=== PATIENT | female | born 1935 | race Caucasian/White ===

== ENCOUNTER → 2016-11-16 | Outpatient (CLI) | payer BC ==
[~2016-11-16] MED LIST: AMX500 PO; CHOL100010 PO; CRBSR/200 PO
[2016-11-16 13:58] LABS: BASO % 0.5 %; BASO ABS # 0.02 K/uL (0-0.2); COMPLETE YES; EOS % 1.2 %; HEMATOCRIT 37.7 % (37-47); LYMPH % 37.2 %; MEAN CELL VOLUME 89.8 fL (80-100); MEAN CORPUSCULAR HEMOGLOBIN 32.1 pg (25-34); MEAN CORPUSCULAR HGB CONC 35.8 g/dl (32-36); MEAN PLATELET VOLUME 10.2 fL (7.4-10.4); MONO % 13.3 %; NEUT % 47.8 %; PLATELET COUNT 271 K/uL (130-400)
[2016-11-16 14:20] LABS: ALT/SGPT 29 U/L (12-78); BLOOD UREA NITROGEN 11 mg/dl (7-18); BUN/CREATININE RATIO 14.5 (10-20); CALCIUM 8.7 mg/dl (8.5-10.1); CARBON DIOXIDE 27 mmol/L (21-32); CHLORIDE 94 mmol/L (98-107); CREATININE 0.76 mg/dl (0.60-1.20); GLUCOSE 91 mg/dl (70-99); POTASSIUM 4.1 mmol/L (3.5-5.1); SODIUM 129 mmol/L (136-145)
[2016-11-16 14:23] LABS: ALB/GLOB RATIO 1.5 (0.9-2); ALKALINE PHOSPHATASE 80 U/L (45-117); AST/SGOT 21 U/L (15-37)
== END | disposition home or self-care (01) ==
LOC: C.LABBC 11:27
PROVIDERS: ATTEND Psychiatry & Neurology Neurology
DX: E55.9 Vitamin D deficiency, unspecified (principal); E87.1 Hypo-osmolality and hyponatremia; Z85.038 Personal history of other malignant neoplasm of large intestine; G50.0 Trigeminal neuralgia

== ENCOUNTER → 2016-12-17 | Outpatient (CLI) | payer BC ==
--- NOTE | 2016-12-17 15:40 | MAMMOGRAPHY REPORT ---
BILATERAL DIGITAL SCREENING MAMMOGRAM WITH CAD: 12/17/2016 CLINICAL HISTORY: Routine screening. Patient has no complaints. TECHNIQUE: Current study was also evaluated with a Computer Aided Detection (CAD) system. Bilatera l CC and MLO views were obtained. COMPARISON: Comparison is made to exams dated: 12/02/2014 mammogram, 12/15/2015 mammogram, 11/26/2013 m ammogram, 11/20/2012 mammogram, 11/16/2011 mammogram, and 11/13/2010 mammogram - [facility]. BREAST COMPOSITION: There are scattered areas of fibroglandular density in both breasts. FINDINGS: No suspicious masses, calcifications, or areas of architectural distortion are noted in e ither breast. There has been no significant interval change compared to prior exams. IMPRESSION: ACR BI-RADS CATEGORY 1: NEGATIVE There is no mammographic evidence of malignancy. A 1 year screening mammogram is recommended. The p atient will receive written notification of the results. Approximately 10% of breast cancers are not detected with mammography. A negative mammographic repor t should not delay biopsy if a clinically suggestive mass is present. Perla Price M.D. ah/:12/17/2016 08:29:15 Tourist Home Keeper: Benedicto COLEMAN(R)(M), [facility] letter sent: Normal 1/2 BI-RADS Code: ACR BI-RADS Category 1: Negative
== END | disposition home or self-care (01) ==
LOC: C.MAMM 07:55
PROVIDERS: ATTEND Internal Medicine
DX: Z12.31 Encounter for screening mammogram for malignant neoplasm of breast (principal)

== ENCOUNTER → 2017-05-04 | Outpatient (CLI) | payer BC ==
[2017-05-04 17:30] LABS: BASO % 0.3 %; BASO ABS # 0.02 K/uL (0-0.2); COMPLETE YES; EOS % 0.5 %; HEMATOCRIT 37.2 % (37-47); IG% 0.3 %; LYMPH % 18.8 %; LYMPH ABS # 1.48 K/uL (1.2-3.4); MEAN CELL VOLUME 91.6 fL (80-100); MEAN PLATELET VOLUME 10.1 fL (7.4-10.4); MONO % 16.1 %; PLATELET COUNT 243 K/uL (130-400); RED BLOOD COUNT 4.06 M/uL (4.2-5.4); WHITE BLOOD COUNT 7.88 K/uL (4.8-10.8)
[2017-05-04 17:51] LABS: ALT/SGPT 33 U/L (12-78); AST/SGOT 29 U/L (15-37); BLOOD UREA NITROGEN 12 mg/dl (7-18); BUN/CREATININE RATIO 15.2 (10-20); CALCIUM 9.2 mg/dl (8.5-10.1); CARBON DIOXIDE 30 mmol/L (21-32); CHLORIDE 97 mmol/L (98-107); CREATININE 0.82 mg/dl (0.60-1.20); GLUCOSE 81 mg/dl (70-99); POTASSIUM 4.2 mmol/L (3.5-5.1); SODIUM 131 mmol/L (136-145)
[2017-05-04 17:53] LABS: ALB/GLOB RATIO 1.2 (0.9-2); ALKALINE PHOSPHATASE 94 U/L (45-117)
== END | disposition home or self-care (01) ==
LOC: C.LAB1850 16:57
PROVIDERS: ATTEND Internal Medicine
DX: N39.0 Urinary tract infection, site not specified (principal); M54.9 Dorsalgia, unspecified

== ENCOUNTER → 2017-05-05 | Outpatient (CLI) | payer BC ==
--- NOTE | 2017-05-05 10:05 | DIAGNOSTIC IMAGING REPORT ---
KUB CLINICAL HISTORY: Right-sided back pain. FINDINGS: 2 AP supine abdominal radiographs are compared to study dated 07/03/2007 and correlated with abdominal CT dated 01/26/2010. There is a nonobstructed abdominal bowel gas pattern noting moderate colonic fecal retention. Suture material is present in the left abdomen. There is no radiographic evidence of nephrolithiasis. The skeletal structures are osteopenic. The lumbosacral spine and bony pelvis appear intact. IMPRESSION: 1. Moderate constipation. No bowel obstruction is seen. 2. There is no radiographic evidence of nephrolithiasis. Electronically signed by: Yves Lama M.D. 05/05/2017 10:04 AM Dictated Date/Time: 05/05/2017 10:03 AM
== END | disposition home or self-care (01) ==
LOC: C.RAD1850 09:48
PROVIDERS: ATTEND Internal Medicine
DX: M54.9 Dorsalgia, unspecified (principal); K59.00 Constipation, unspecified

== ENCOUNTER → 2017-05-17 | Outpatient (CLI) | payer BC ==
[2017-05-17 13:47] LABS: URINE APPEARANCE CLEAR (CLEAR); URINE BILIRUBIN NEG (NEG); URINE COLOR YELLOW; URINE NITRITE NEG (NEG); URINE PH 7.5 (4.5-7.5); URINE SPECIFIC GRAVITY 1.015 (1.000-1.030); UROBILINOGEN NEG (NEG); ZZUR CULT IF INDIC CLEAN CATCH NO
[2017-05-17 13:49] LABS: MANUAL MICROSCOPIC REQUIRED? NO; REVIEW REQ? NO
== END | disposition home or self-care (01) ==
LOC: C.LAB1850 12:04
PROVIDERS: ATTEND Internal Medicine
DX: N39.0 Urinary tract infection, site not specified (principal)

== ENCOUNTER → 2017-11-14 | Outpatient (CLI) | payer BC ==
[2017-11-14 12:20] LABS: BASO % 0.5 %; BASO ABS # 0.02 K/uL (0-0.2); EOS % 4.3 %; EOS ABS # 0.17 K/uL (0-0.5); HEMATOCRIT 37.7 % (37-47); HEMOGLOBIN 13.4 g/dL (12.0-16.0); LYMPH % 41.4 %; LYMPH ABS # 1.64 K/uL (1.2-3.4); MEAN CELL VOLUME 90.2 fL (80-100); MEAN CORPUSCULAR HEMOGLOBIN 32.1 pg (25-34); MEAN CORPUSCULAR HGB CONC 35.5 g/dl (32-36); MEAN PLATELET VOLUME 9.9 fL (7.4-10.4); MONO % 12.4 %; MONO ABS # 0.49 K/uL (0.11-0.59); NEUT % 41.4 %; NEUT ABS # 1.64 K/uL (1.4-6.5); PLATELET COUNT 299 K/uL (130-400); RED CELL DISTRIBUTION WIDTH CV 13.7 % (11.5-14.5); RED CELL DISTRIBUTION WIDTH SD 45.3 fL (36.4-46.3); WHITE BLOOD COUNT 3.96 K/uL (4.8-10.8)
[2017-11-14 14:28] LABS: ALBUMIN 3.8 gm/dl (3.4-5.0); ALT/SGPT 33 U/L (12-78); BLOOD UREA NITROGEN 13 mg/dl (7-18); CALCIUM 8.8 mg/dl (8.5-10.1); CARBON DIOXIDE 28 mmol/L (21-32); CHOLESTEROL 227 mg/dl (0-200); CREATININE 0.74 mg/dl (0.60-1.20); GLUCOSE 89 mg/dl (70-99); POTASSIUM 4.6 mmol/L (3.5-5.1); SODIUM 128 mmol/L (136-145)
[2017-11-14 14:31] LABS: ALKALINE PHOSPHATASE 79 U/L (45-117); AST/SGOT 26 U/L (15-37); LDL CHOLESTEROL CALCULATED 113 mg/dl; TOTAL PROTEIN 6.8 gm/dl (6.4-8.2)
== END | disposition home or self-care (01) ==
LOC: C.LAB1850 09:40
PROVIDERS: ATTEND Internal Medicine
DX: Z11.59 Encounter for screening for other viral diseases (principal); Z85.038 Personal history of other malignant neoplasm of large intestine; D70.2 Other drug-induced agranulocytosis; Z13.220 Encounter for screening for lipoid disorders

== ENCOUNTER → 2017-11-16 | Outpatient (CLI) | payer BC ==
[2017-11-16 13:01] LABS: ALBUMIN 3.8 gm/dl (3.4-5.0); BLOOD UREA NITROGEN 12 mg/dl (7-18); CALCIUM 8.7 mg/dl (8.5-10.1); CARBON DIOXIDE 29 mmol/L (21-32); CREATININE 0.83 mg/dl (0.60-1.20); GLUCOSE 87 mg/dl (70-99); POTASSIUM 4.3 mmol/L (3.5-5.1); SODIUM 128 mmol/L (136-145)
[2017-11-16 13:14] LABS: PHOSPHORUS 3.2 mg/dl (2.5-4.9)
== END | disposition home or self-care (01) ==
LOC: C.LAB1850 11:52
PROVIDERS: ATTEND Internal Medicine Nephrology
DX: E87.1 Hypo-osmolality and hyponatremia (principal)

== ENCOUNTER → 2017-12-20 | Outpatient (CLI) | payer BC ==
--- NOTE | 2017-12-21 15:05 | MAMMOGRAPHY REPORT ---
BILATERAL DIGITAL SCREENING MAMMOGRAM TOMOSYNTHESIS WITH CAD: 12/20/2017 CLINICAL HISTORY: Routine screening. Patient has no complaints. TECHNIQUE: Breast tomosynthesis in addition to standard 2D mammography was performed. Current study was also evaluated with a Computer Aided Detection (CAD) system. COMPARISON: Comparison is made to exams dated: 12/17/2016 mammogram, 12/15/2015 mammogram, 12/02/2014 carmela mogram, 11/26/2013 mammogram, 11/20/2012 mammogram, and 11/16/2011 mammogram - [facility] BREAST COMPOSITION: There are scattered areas of fibroglandular density in both breasts. FINDINGS: There is stable asymmetry in the lateral left breast. No new suspicious mass, architectura l distortion or cluster of microcalcifications is seen. IMPRESSION: ACR BI-RADS CATEGORY 1: NEGATIVE There is no mammographic evidence of malignancy. A 1 year screening mammogram is recommended. The pa tient will receive written notification of the results. Approximately 10% of breast cancers are not detected with mammography. A negative mammographic report should not delay biopsy if a clinically suggestive mass is present. Zina Hannah M.D. ay/:12/20/2017 17:58:24 Fuel Pilot Engineer: Jaxon Sellers M, [facility] letter sent: Normal 1/2 BI-RADS Code: ACR BI-RADS Category 1: Negative
== END | disposition home or self-care (01) ==
LOC: C.MAMM 08:51
PROVIDERS: ATTEND Internal Medicine
DX: Z12.31 Encounter for screening mammogram for malignant neoplasm of breast (principal)

== ENCOUNTER → 2017-12-28 | Outpatient (CLI) | payer BC ==
[2017-12-28 17:11] LABS: ALBUMIN 3.9 gm/dl (3.4-5.0); BLOOD UREA NITROGEN 11 mg/dl (7-18); CALCIUM 8.8 mg/dl (8.5-10.1); CARBON DIOXIDE 28 mmol/L (21-32); CREATININE 0.76 mg/dl (0.60-1.20); GLUCOSE 87 mg/dl (70-99); PHOSPHORUS 3.3 mg/dl (2.5-4.9); POTASSIUM 4.2 mmol/L (3.5-5.1); SODIUM 131 mmol/L (136-145)
== END | disposition home or self-care (01) ==
LOC: C.LABBC 14:31
PROVIDERS: ATTEND Internal Medicine Nephrology
DX: E87.1 Hypo-osmolality and hyponatremia (principal)

== ENCOUNTER 2023-03-19 13:50 | Inpatient (IN) ==
[2023-03-19] MEDS ORDERED: MoRPHine SULFATE 4 MG/ML 1 ML CARP\\VIAL IV PRN (14:05)
[2023-03-19] MEDS ORDERED: ONDANSETRON INJ 2 MG/ML 2 ML VIAL IV STA (14:05)
[2023-03-19] MEDS ORDERED: SODIUM CHLORIDE 0.9% 1000ML 1,000 ML IV STA (14:05)
--- NOTE | 2023-03-19 14:10 | Emergency Department Note ---
Impression & Plan SBO (small bowel obstruction), Abdominal pain, Acute hyponatremia ED Provider Note NAME: JITENDRA FRITZ AGE: 87 SEX: F : 1935 ARRIVES VIA: Walk-In INFORMANT: Patient, ED PROVIDER(S): Henry Reis DO CHIEF COMPLAINT: Abdominal pain HPI: The patient is an 87-year-old female who presented to the emergency department for an evaluation of abdominal pain. The patient started having abdominal pain yesterday. Pain has been worsening throughout the evening and into today. She was seen at an urgent care and was referred to the emergency department for further evaluation as well as possible CAT scan. She is a history of colon cancer in the past with extensive surgical treatment. She denies having any rectal bleeding. She has had some constipation recently. She is often seen by her family doctor for the symptoms. She denies having any chest pain or fever. ROS: See above HPI for pertinent positives & negatives. A total of 10 systems reviewed and were otherwise negative. PAST MEDICAL HISTORY: See Below PAST SURGICAL HISTORY: See Below FAMILY HISTORY: See Below SOCIAL HISTORY: See Below HOME MEDICATIONS: See Below ALLERGIES: See Below VITALS: See Below PHYSICAL EXAMINATION: GENERAL: Patient is awake alert in no acute distress patient is resting comfortably and showing no signs of anxiety EYES: The conjunctivae are clear. The pupils are round and reactive. EARS, NOSE, MOUTH AND THROAT: The nose is without any evidence of any deformity. NECK: The neck is nontender and supple. RESPIRATORY: Normal respiratory effort is noted there is no evidence of wheezing rhonchi or rales CARDIOVASCULAR: Regular rate and rhythm noted there no murmurs rubs or gallops normal S1 normal S2. GASTROINTESTINAL: The abdomen is soft and mildly distended. There is diffuse tenderness to palpation especially in the lower quadrants. There is mild guarding in the left lower quadrant. MUSCULOSKELETAL/EXTREMITIES: There is no evidence of gross deformity full range of motion is noted in the hips and shoulders. SKIN: There is no obvious evidence of any rash. There are no petechiae, pallor or cyanosis noted. NEUROLOGIC: Patient is awake alert and oriented x3 MEDICAL DECISION MAKING: The patient is an 87-year-old female who presented to the emergency department for an evaluation of lower abdominal pain. The patient also had nausea and vomiting. The patient has a history of colon cancer in the past. Laboratory results were reassuring however the patient was found to have signs of small bowel obstruction on CT. The patient was treated with IV fluids and IV antiemetics. She also had an NG tube placed after discussion with surgery. The patient was reevaluated multiple times. I discussed her condition with the on- call [facility] hospitalist. They have agreed to evaluate the patient in the emergency department for further management and disposition. Triage Nursing notes reviewed. Prior medical records reviewed Vital Signs: reviewed and remarkable for no significant abnormalities Differential diagnosis: Etiologies such as appendicitis, diverticulitis, obstruction, inflammatory bowel disease, renal colic, PUD, biliary pathology, pancreatitis, mesenteric ischemia, aortic pathology, infections, genitourinary, UTI, perforated viscus, as well as others were entertained. ER treatment provided: See below Diagnostics interpreted by me: ECG: EKG was obtained in the emergency department. My interpretation is normal sinus rhythm at 61 bpm. There was no ectopy. Poor R wave progression was noted. Nonspecific ST segment abnormalities were noted. This was compared to a tracing from April 17, 2021. No changes were noted. Cardiac Monitoring: An order was placed for continuous cardiac monitoring. The monitor shows a rate of 74 bpm with sinus rhythm. Laboratory studies: As stated above and show below. Imaging studies: See below. Radiographic imaging was reviewed by myself Consultation(s): I discussed this case with Dr Fuentes I discussed this case with Dr. Carroll who is on-call for the [facility] group. Past Med/Surg History Medical History Drug-induced leukopenia History of colon cancer 2006--sx Migraine Open wound of left upper arm Trigeminal neuralgia of left side of face Weight loss Surgical History History of appendectomy History of bilateral cataract extraction History of colonoscopy History of partial colectomy 2007 @ [facility] 12 inches removed History of tooth extraction partial permanent upper denture History of total hysterectomy with bilateral salpingo-oophorectomy (BSO) History of wisdom tooth extraction S/P cataract surgery Family History Father [employer] workers pneumoconiosis Daughter Skin cancer Brother No problems noted. Aunt Family hx of colon cancer Other No family history of adverse response to anesthesia Denies family history of Ovarian cancer Prostate cancer Myocardial infarction Breast cancer Colorectal cancer Social History Smoking Status: Never smoker Second Hand Exposure: Yes (father smoked); Do You Dip or Chew Tobacco: No; Hx Alcohol Use: Yes Alcohol type: other Hx Substance Use: No Preferred Language: Korean Communication Ability: Effective Visual Impairment: No Limitations Hearing Ability: Normal Ticket Taker Ferryboat Required: No Beliefs That Will Affect Care: None marital status: Current Living Situation: Spouse current occupational status: retired Feels Safe at Home: Yes Childhood Exposure to Second-Hand Smoke: Yes Dental Care, Regularly: Yes Physical Activity Frequency: Daily Physical Activity Frequency Comment: stairs at home Seatbelt Use: always Sunscreen Use: No Assistive Devices: Glasses Allergies Allergies Allergy/AdvReac Type Severity Reaction Status Date / Time mannitol [From Reclast] Allergy Mild "felt sick" Verified 03/19/23 16:10 risedronate sodium Allergy Mild "felt sick" Verified 03/19/23 16:10 [From Actonel] water for injection,sterile Allergy Mild "felt sick" Verified 03/19/23 16:10 [From Reclast] zoledronic acid Allergy Mild "felt sick" Verified 03/19/23 16:10 [From Reclast] Home Meds Home Medications Medication Instructions Recorded Confirmed cholecalciferol (vitamin D3) 25 2,000 units PO DAILY #60 caps 05/16/19 03/19/23 mcg (1,000 unit) capsule ascorbate calcium (vitamin C) 500 500 mg PO DAILY 03/27/21 03/19/23 mg tablet zinc acetate 50 mg (zinc) capsule 50 mg PO DAILY 04/17/21 03/19/23 cyclosporine 0.05 % eye drops in a 1 drp ophthalmic (eye) Q12H 10/14/21 03/19/23 dropperette (Restasis) sodium chloride 1,000 mg soluble 1,000 mg PO DAILY 03/19/23 03/19/23 tablet Previous Rx's Medication Instructions Recorded carbamazepine 200 mg 200 mg PO BID 30 days #60 caps 11/05/22 capsule,extended release [id number] baclofen 10 mg tablet 10 mg PO BID 30 days #60 tabs 11/22/22 Results & Data (ED) Vital Signs Vital Signs - 24 hr 03/19/23 13:53 03/19/23 15:52 03/19/23 15:52 Temperature 36.7 C Temperature Source Temporal Artery Scan Pulse Rate 69 74 Pulse Rate [Right Finger] 74 Pulse Rhythm [Right Finger] Regular Pulse Strength [Right Finger] Normal Respiratory Rate 15 17 17 Respiratory Effort / Characteristics Non-Labored Spontaneous Respiratory Depth Normal Blood Pressure 147/82 H Blood Pressure [Left Arm] 139/79 Blood Pressure Mean 103 Blood Pressure Mean [Left Arm] 99 Pulse Oximetry 100 98 98 Oxygen Delivery Method Room Air Room Air Room Air Sepsis Recent Fever Within 48 Hours No Sepsis New/Unexplained Change in Mental Status N/A Sepsis Action Taken by Nursing No Action Required Home Medications Current Medication List: was personally reviewed by me Laboratory Data Attestation: I reviewed the patient's lab results. 03/19/23 14:17 03/19/23 14:17 Lab Results 03/19/23 03/19/23 03/19/23 Range/Units 14:17 14:17 14:17 WBC 7.45 (4.8-10.8) K/ul RBC 4.32 (4.20-5.40) M/uL Hgb 14.3 (12.0-16.0) g/dl Hct 39.0 (37.0-47.0) % MCV 90.3 (80.0-100.0) fL MCH 33.1 (25.0-34.0) pg MCHC 36.7 H (32.0-36.0) g/dL RDW Std Deviation 43.1 (36.4-46.3) fL RDW Coeff of Tu 13.0 (11.5-14.5) % Plt Count 293 (130-400) K/uL MPV 9.7 (9.4-12.4) fL Immature Gran % (Auto) 0.3 % Neut % (Auto) 82.8 % Lymph % (Auto) 10.7 % [place] % (Auto) 5.8 % Eos % (Auto) 0.1 % Baso % (Auto) 0.3 % Neut # (Auto) 6.17 (1.40-6.50) K/uL Lymph # (Auto) 0.80 L (1.2-3.4) K/uL [place] # (Auto) 0.43 (0.11-0.59) K/uL Eos # (Auto) 0.01 (0-0.50) K/uL Baso # (Auto) 0.02 (0-0.2) K/uL Immature Gran # (Auto) 0.02 (0.01-0.20) K/uL PT 10.6 (9.0-12.0) Seconds INR 1.0 (0.9-1.1) APTT 26.6 (21.0-31.0) Seconds PTT Ratio 0.9 Sodium 124 L (136-145) mmol/L Potassium 4.0 (3.5-5.1) mmol/L Chloride 89 L (98-107) mmol/L Carbon Dioxide 26 (21-32) mmol/L Anion Gap 9 (3-11) BUN 11 (6-23) mg/dl Creatinine 0.65 (0.6-1.2) mg/dl Est Cr Clr Drug Dosing 50.0 ml/min Est GFR ( Amer) 93.8 ml/min Est GFR (Non-Af Amer) 81.0 ml/min BUN/Creatinine Ratio 16.9 (10-20) Glucose 111 H (70-99(Fasting)) mg/dl Calcium 9.6 (8.6-10.3) mg/dl Total Bilirubin 0.6 (0.2-1.0) mg/dl AST 21 (13-39) U/L ALT 17 (7-52) U/L Alkaline Phosphatase 102 (34-104) U/L Troponin I High Sens 4.4 (0-14) pg/ml Total Protein 7.2 (6.0-8.3) gm/dl Albumin 4.5 (3.4-5.0) gm/dl Globulin 2.7 (2.5-4.0) gm/dl Albumin/Globulin Ratio 1.7 (0.9-2) Lipase 11 (11-82) U/L Urine Color Urine Appearance (Clear) Urine pH (4.5-7.5) Ur Specific [place] (1.000-1.030) Urine Protein (Negative) Urine Glucose (UA) (Negative) Urine Ketones (Negative) Urine Blood (Negative) Urine Nitrite (Negative) Urine Bilirubin (Negative) Urine Urobilinogen (Negative) Ur Leukocyte Esterase (Negative) Urine WBC (Auto) (0-5) /hpf Urine RBC (Auto) (0-4) /hpf U Hyaline Cast (Auto) (0-5) /lpf U Epithel Cells (Auto) (0-5) /lpf Urine Bacteria (Auto) (Negative) 03/19/23 Range/Units 15:46 WBC (4.8-10.8) K/ul RBC (4.20-5.40) M/uL Hgb (12.0-16.0) g/dl Hct (37.0-47.0) % MCV (80.0-100.0) fL MCH (25.0-34.0) pg MCHC (32.0-36.0) g/dL RDW Std Deviation (36.4-46.3) fL RDW Coeff of Tu (11.5-14.5) % Plt Count (130-400) K/uL MPV (9.4-12.4) fL Immature Gran % (Auto) % Neut % (Auto) % Lymph % (Auto) % [place] % (Auto) % Eos % (Auto) % Baso % (Auto) % Neut # (Auto) (1.40-6.50) K/uL Lymph # (Auto) (1.2-3.4) K/uL [place] # (Auto) (0.11-0.59) K/uL Eos # (Auto) (0-0.50) K/uL Baso # (Auto) (0-0.2) K/uL Immature Gran # (Auto) (0.01-0.20) K/uL PT (9.0-12.0) Seconds INR (0.9-1.1) APTT (21.0-31.0) Seconds PTT Ratio Sodium (136-145) mmol/L Potassium (3.5-5.1) mmol/L Chloride (98-107) mmol/L Carbon Dioxide (21-32) mmol/L Anion Gap (3-11) BUN (6-23) mg/dl Creatinine (0.6-1.2) mg/dl Est Cr Clr Drug Dosing ml/min Est GFR ( Amer) ml/min Est GFR (Non-Af Amer) ml/min BUN/Creatinine Ratio (10-20) Glucose (70-99(Fasting)) mg/dl Calcium (8.6-10.3) mg/dl Total Bilirubin (0.2-1.0) mg/dl AST (13-39) U/L ALT (7-52) U/L Alkaline Phosphatase (34-104) U/L Troponin I High Sens (0-14) pg/ml Total Protein (6.0-8.3) gm/dl Albumin (3.4-5.0) gm/dl Globulin (2.5-4.0) gm/dl Albumin/Globulin Ratio (0.9-2) Lipase (11-82) U/L Urine Color Yellow Urine Appearance Clear (Clear) Urine pH 7.5 (4.5-7.5) Ur Specific [place] 1.015 (1.000-1.030) Urine Protein Negative (Negative) Urine Glucose (UA) Negative (Negative) Urine Ketones 1+ H (Negative) Urine Blood Negative (Negative) Urine Nitrite Negative (Negative) Urine Bilirubin Negative (Negative) Urine Urobilinogen Negative (Negative) Ur Leukocyte Esterase Trace H (Negative) Urine WBC (Auto) 1-5 (0-5) /hpf Urine RBC (Auto) 0-4 (0-4) /hpf U Hyaline Cast (Auto) 0 (0-5) /lpf U Epithel Cells (Auto) 0-5 (0-5) /lpf Urine Bacteria (Auto) 2+ H (Negative) Administered Medications Morphine Sulfate (Morphine Sulfate 4 Mg/Ml 1 Ml Carp\\Vial) 4 mg IV Q15M PRN PRN Reason: Pain Stop: 04/02/23 14:04 Last Admin: 03/19/23 14:30 Dose: 4 mg Documented By: MARA Discontinued Medications Sodium Chloride (Nss 1000ml) 1,000 mls @ 999 mls/hr IV .Q1H1M STA Stop: 03/19/23 15:05 Last Admin: 03/19/23 14:36 Dose: 999 mls/hr Documented By: MARA Ioversol (Optiray 320 100ml) 92 ml IV ONCE ONE Stop: 03/19/23 15:25 Last Admin: 03/19/23 15:24 Dose: 92 ml Documented By: KOKO Ondansetron HCl (Ondansetron Inj 2 Mg/Ml 2 Ml Vial) 4 mg IV NOW STA Stop: 03/19/23 14:06 Last Admin: 03/19/23 14:30 Dose: 4 mg Documented By: MARA Imaging Data Attestation: I personally reviewed and interpreted this imaging study as tyler osborn: My Impression: CT of the abdomen and pelvis was obtained in the emergency department. My interpretation is no free air, dilated loops of small bowel were appreciated, final report below Radiologist's Impression: Abdomen/Pelvis CT 03/19/23 14:05 CT SCAN OF THE ABDOMEN AND PELVIS WITH IV CONTRAST CLINICAL HISTORY: Generalized abdominal pain. COMPARISON STUDY: Abdominal CT dated 04/22/2021. TECHNIQUE: Following the IV administration of 92 cc of Optiray 320, CT scan of the abdomen and pelvis is performed from the lung bases to the proximal femora. Images are reviewed in the axial, sagittal, and coronal planes. IV contrast was administered without complication. A dose lowering technique was utilized adhering to the principles of ALARA. CT DOSE: 573.27 mGy.cm FINDINGS: Lung bases: The heart is enlarged and without pericardial effusion. There are coronary artery calcifications. The lung bases are clear noting dependent scarring/atelectasis. Liver: The contrast-enhanced liver is normal in size, contour, and attenuation. There is no intrahepatic biliary ductal dilatation. The hepatic veins and portal veins are patent. There is a 1.6 cm left lobe cyst. Gallbladder: Unremarkable. Spleen: Normal in size and attenuation. Pancreas: Unremarkable. Adrenal glands: Unremarkable. Kidneys: The contrast enhanced kidneys demonstrate mild cortical atrophy and are without hydronephrosis. There is fullness of the renal collecting systems, possibly related to bladder distention. The kidneys enhance symmetrically. Scattered subcentimeter cortical hypodensities likely represent cysts but are too small for definitive characterization. Abdominal vasculature: The abdominal aorta is normal in course and caliber noting mild atherosclerotic calcification. Bowel: There is postsurgical change from left-sided colon resection with colocolonic anastomosis. The small bowel loops are distended and fluid-filled, measuring up to 3.8 cm in diameter. A transition point is seen in the ventral upper pelvis on image #204, and the distal small bowel is decompressed. This is consistent with a small bowel obstruction. There is interloop fluid. No focally thick-walled bowel loops are identified. There is no pneumatosis intestinalis or portal venous gas. The appendix is not identified and reported surgically absent. Peritoneum: Nodular peritoneal free air is seen. There is trace perihepatic and a small volume of pelvic ascites. A midline surgical scar is noted. Lymphadenopathy: None. Pelvic viscera: The bladder is mildly distended but otherwise normal as visualized. The uterus is surgically absent. No adnexal lesion is seen. Skeletal structures: The skeletal structures are osteopenic. There is mild lumbosacral spondylosis. No lytic or blastic lesions are seen. IMPRESSION: 1. Small bowel obstruction as above a transition point seen in the ventral upper pelvis. This is likely on the basis of adhesions. 2. There is interloop fluid and a small volume of ascites. 3. No intraperitoneal free air is seen. No focally thick-walled bowel obstruction identified and there is no pneumatosis intestinalis or portal venous gas. 4. Cardiomegaly. 5. Additional findings as above. ACT 112: Negative or not required by law. Electronically signed by: Yves Lama M.D. 03/19/2023 3:45 PM Discharge Plan Visit Data Chief Complaint: Testing Request Stated Complaint: TESTING REQ, REF BY [employer] ED Provider: Henry Reis Discharge Problem: SBO (small bowel obstruction), Abdominal pain, Acute hyponatremia Patient Disposition: Being Evaluated by Hospitalist Forms Stand Alone Forms: My [facility] [place] [employer] Prescriptions Prescriptions: No Action carbamazepine 200 mg capsule, ER multiphase 12 hr 200 mg PO BID 30 Days Qty: 60 5RF baclofen 10 mg tablet 10 mg PO BID 30 Days Qty: 60 5RF cholecalciferol (vitamin D3) 1,000 unit capsule 2,000 units PO DAILY Qty: 60 ascorbate calcium (vitamin C) 500 mg tablet 500 mg PO DAILY Restasis 0.05 % dropperette 1 drp ophthalmic (eye) Q12H zinc acetate 50 mg (zinc) Capsule 50 mg PO DAILY sodium chloride 1,000 mg Tablet,Soluble 1,000 mg PO DAILY Referrals Referrals: Hortencia Ang MD [Primary Care Provider] -
[2023-03-19 14:59] LABS: Basophils # (auto) 0.02 K/uL (0-0.2); Basophils % (auto) 0.3 %; Eosinophils # (auto) 0.01 K/uL (0-0.50); Eosinophils % (auto) 0.1 %; Hemoglobin 14.3 g/dl (12.0-16.0); Immature Granulocytes # (auto) 0.02 K/uL (0.01-0.20); Immature Granulocytes % (auto) 0.3 %; Lymphocytes % (auto) 10.7 %; Mean Corpuscular Hemoglobin 33.1 pg (25.0-34.0); Mean Corpuscular Hgb Conc 36.7 g/dL (32.0-36.0); Mean Corpuscular Volume 90.3 fL (80.0-100.0); Mean Platelet Volume 9.7 fL (9.4-12.4); Monocytes # (auto) 0.43 K/uL (0.11-0.59); Monocytes % (auto) 5.8 %; Neutrophils # (auto) 6.17 K/uL (1.40-6.50); Neutrophils % (auto) 82.8 %; Platelet Count 293 K/uL (130-400); RDW Standard Deviation 43.1 fL (36.4-46.3); Red Blood Count 4.32 M/uL (4.20-5.40); White Blood Count 7.45 K/ul (4.8-10.8)
[2023-03-19 15:15] LABS: Albumin Globulin Ratio 1.7 (0.9-2); Albumin Level 4.5 gm/dl (3.4-5.0); BUN Creatinine Ratio 16.9 (10-20); Bilirubin,Total 0.6 mg/dl (0.2-1.0); Calcium 9.6 mg/dl (8.6-10.3); Est GFR (African American) 93.8 ml/min; Globulin 2.7 gm/dl (2.5-4.0); Total Protein 7.2 gm/dl (6.0-8.3)
[2023-03-19 15:22] LABS: Troponin I High Sensitivity 4.4 pg/ml (0-14)
[2023-03-19] MEDS ORDERED: OPTIRAY 320 100ml IV ONE (15:24)
[2023-03-19 15:43] LABS: Partial Thromboplastin Ratio 0.9; Partial Thromboplastin Time 26.6 Seconds (21.0-31.0); Prothrombin Time 10.6 Seconds (9.0-12.0)
--- NOTE | 2023-03-19 15:48 | CT Scan Report ---
CT SCAN OF THE ABDOMEN AND PELVIS WITH IV CONTRAST CLINICAL HISTORY: Generalized abdominal pain. COMPARISON STUDY: Abdominal CT dated 04/22/2021. TECHNIQUE: Following the IV administration of 92 cc of Optiray 320, CT scan of the abdomen and pelvi s is performed from the lung bases to the proximal femora. Images are reviewed in the axial, sagittal , and coronal planes. IV contrast was administered without complication. A dose lowering technique wa s utilized adhering to the principles of ALARA. CT DOSE: 573.27 mGy.cm FINDINGS: Lung bases: The heart is enlarged and without pericardial effusion. There are coronary artery calcifi cations. The lung bases are clear noting dependent scarring/atelectasis. Liver: The contrast-enhanced liver is normal in size, contour, and attenuation. There is no intrahepa tic biliary ductal dilatation. The hepatic veins and portal veins are patent. There is a 1.6 cm left lobe cyst. Gallbladder: Unremarkable. Spleen: Normal in size and attenuation. Pancreas: Unremarkable. Adrenal glands: Unremarkable. Kidneys: The contrast enhanced kidneys demonstrate mild cortical atrophy and are without hydronephros is. There is fullness of the renal collecting systems, possibly related to bladder distention. The ki dneys enhance symmetrically. Scattered subcentimeter cortical hypodensities likely represent cysts bu t are too small for definitive characterization. Abdominal vasculature: The abdominal aorta is normal in course and caliber noting mild atheroscleroti c calcification. Bowel: There is postsurgical change from left-sided colon resection with colocolonic anastomosis. The small bowel loops are distended and fluid-filled, measuring up to 3.8 cm in diameter. A transition p oint is seen in the ventral upper pelvis on image #204, and the distal small bowel is decompressed. T his is consistent with a small bowel obstruction. There is interloop fluid. No focally thick-walled b owel loops are identified. There is no pneumatosis intestinalis or portal venous gas. The appendix is not identified and reported surgically absent. Peritoneum: Nodular peritoneal free air is seen. There is trace perihepatic and a small volume of pel whitney ascites. A midline surgical scar is noted. Lymphadenopathy: None. Pelvic viscera: The bladder is mildly distended but otherwise normal as visualized. The uterus is john gically absent. No adnexal lesion is seen. Skeletal structures: The skeletal structures are osteopenic. There is mild lumbosacral spondylosis. N o lytic or blastic lesions are seen. IMPRESSION: 1. Small bowel obstruction as above a transition point seen in the ventral upper pelvis. This is like ly on the basis of adhesions. 2. There is interloop fluid and a small volume of ascites. 3. No intraperitoneal free air is seen. No focally thick-walled bowel obstruction identified and ther e is no pneumatosis intestinalis or portal venous gas. 4. Cardiomegaly. 5. Additional findings as above. ACT 112: Negative or not required by law. Electronically signed by: Yves Lama M.D. 03/19/2023 3:45 PM
[2023-03-19] MEDS ORDERED: SODIUM CHLORIDE 0.9% 1000ML 1,000 ML IV ONE (16:00)
[2023-03-19 16:21] LABS: Appearance Urine Clear (Clear); Bacteria Urine Automated 2+ (Negative); Bilirubin Urine Negative (Negative); Blood Urine Negative (Negative); Cast Urine Automated 0 /lpf (0-5); Color Urine Yellow; Epithelial Cell Urine Auto 0-5 /lpf (0-5); Glucose Urine UA Negative (Negative); Ketones Urine 1+ (Negative); Leukocyte Esterase Urine Trace (Negative); Nitrite Urine Negative (Negative); Protein Urine Negative (Negative); RBC Urine Automated 0-4 /hpf (0-4); Specific Gravity Urine 1.015 (1.000-1.030); Urobilinogen Urine Negative (Negative); pH Urine 7.5 (4.5-7.5)
--- NOTE | 2023-03-19 16:25 | History & Physical Report ---
Date of Service March 19, 2023 Assessment & Plan (1) SBO (small bowel obstruction): Plan: Small bowel obstruction likely adhesional History of colon cancer s/p resection 2006 with clear margins, hysterectomy with BSO, appendectomy CTA/P: 1. Small bowel obstruction as above a transition point seen in the ventral upper pelvis. This is likely on the basis of adhesions.2. There is interloop fluid and a small volume of ascites.3. No intraperitoneal free air is seen. No focally thick-walled bowel obstruction identified and there is no pneumatosis intestinalis or portal venous gas.4. Cardiomegaly.5. Additional findings as above. Received 2 L NSS in ER No leukocytosis Surgery consulted NGT placed, LIS. 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 Currently n.p.o. with NGT in place and clinically slightly hypovolemic will place balanced IV FM to 80 cc/h, if sodium is dropping hold IVF. May need to add small boluses of 3% saline as patient is not able to take her salt tablets. Trigeminal neuralgia Carbamazepine continued. Patient does have hyponatremia, mild to moderate and has discussed her/benefits of continuing this in the setting of hyponatremia in the past. Carbamazepine is held while patient is n.p.o. with NGT in place - Follows with Neurologist SHMUEL Osman with this. Takes salt tablets as needed. - Discussed with Neuro. Given holding carbamazepine with severe tgn pain previously will add valproate to 250 IV twice daily for rebound prevention. This will also give some seizure protection due to cessation of carbamazepine and hyponatremia Asymptomatic bacteriuria No leukocytosis, no fever Patient has no urinary symptoms 2+ bacteria in urine and trace leukocyte esterase Can follow culture and follow for symptoms If leukocytosis rises, fever curve rises, or clinical concern for UTI initiate Rocephin Diet: N.p.o. Disposition: Medical telemetry for initial acute hyponatremia monitoring, downgrade to medical/surgical if improved and stable CODE STATUS: Full code DVT prophylaxis: Lovenox (2) Acute hyponatremia: (3) Abdominal pain: (4) History of colon cancer: History of Present Illness Primary Care Provider: Hortencia Ang MD Lorenza is a 87-year-old female with a past medical history of colon cancer, partial colectomy, total hysterectomy with BSO, appendectomy, hyponatremia, osteoporosis, trigeminal neuralgia who presented with worsening abdominal pain and was found to have small bowel obstruction Seen at the bedside with her . 1 day of nausea/vomiting. NO fever. +chills for 2-3 days. Last BM very little stool today, partial sfot BM yesterday. Minimal to no flatus Has never had a small bowel obstruction before. Has had multiple abdominal surgeries including cyst removal, colectomy for cancer, hysterectomy, and appendectomy She is no longer passing gas in the last 12 hours, reports she has been belching more. She has not had nausea/vomiting Abdomen feels a little bit upset/sore Denies urinary symptoms including dysuria, polyuria Has not been eating and drinking as well Notes that she has severe trigeminal neuralgia currently in remission. This is done well on carbamazepine and she has had chronically low sodium, but these have been intolerable levels and risk/benefit discussion have continued this with careful monitoring. She notes that her neurologist is okay with this, although her PCP has been more concerned. Generally sodium levels above 130 No chest pain, chest pressure, shortness of breath Medical History: Reviewed Medications: Reviewed Surgical History: Reviewed Family history: Reviewed Allergies: Reviewed Social History: No tobacco/alcohol Code Status: Full code Allergies Allergy/AdvReac Type Severity Reaction Status Date / Time mannitol [From Reclast] Allergy Mild "felt sick" Verified 03/19/23 16:10 risedronate sodium Allergy Mild "felt sick" Verified 03/19/23 16:10 [From Actonel] water for injection,sterile Allergy Mild "felt sick" Verified 03/19/23 16:10 [From Reclast] zoledronic acid Allergy Mild "felt sick" Verified 03/19/23 16:10 [From Reclast] Home Medications Medication Instructions Recorded Confirmed Type cholecalciferol (vitamin D3) 25 2,000 units PO DAILY #60 caps 05/16/19 03/19/23 History mcg (1,000 unit) capsule ascorbate calcium (vitamin C) 500 500 mg PO DAILY 03/27/21 03/19/23 History mg tablet zinc acetate 50 mg (zinc) capsule 50 mg PO DAILY 04/17/21 03/19/23 History cyclosporine 0.05 % eye drops in a 1 drp ophthalmic (eye) Q12H 10/14/21 03/19/23 History dropperette (Restasis) carbamazepine 200 mg 200 mg PO BID 30 days #60 caps 11/05/22 03/19/23 Rx capsule,extended release [id number] baclofen 10 mg tablet 10 mg PO BID 30 days #60 tabs 11/22/22 03/19/23 Rx sodium chloride 1,000 mg soluble 1,000 mg PO DAILY 03/19/23 03/19/23 History tablet Past Med/Surg History Medical History Drug-induced leukopenia History of colon cancer 2006--sx Migraine Open wound of left upper arm Trigeminal neuralgia of left side of face Weight loss Surgical History History of appendectomy History of bilateral cataract extraction History of colonoscopy History of partial colectomy 2006 @ [facility] 12 inches removed History of tooth extraction partial permanent upper denture History of total hysterectomy with bilateral salpingo-oophorectomy (BSO) History of wisdom tooth extraction S/P cataract surgery Family History Father [place] workers pneumoconiosis Daughter Skin cancer Brother No problems noted. Aunt Family hx of colon cancer Other No family history of adverse response to anesthesia Denies family history of Ovarian cancer Prostate cancer Myocardial infarction Breast cancer Colorectal cancer Social History Smoking Status: Never smoker Second Hand Exposure: Yes (father smoked); Do You Dip or Chew Tobacco: No; Hx Alcohol Use: Yes Alcohol type: other Hx Substance Use: No Preferred Language: Bulgarian Communication Ability: Effective Visual Impairment: No Limitations Hearing Ability: Normal Culinary Director Required: No Beliefs That Will Affect Care: None marital status: Current Living Situation: Spouse current occupational status: retired Feels Safe at Home: Yes Childhood Exposure to Second-Hand Smoke: Yes Dental Care, Regularly: Yes Physical Activity Frequency: Daily Physical Activity Frequency Comment: stairs at home Seatbelt Use: always Sunscreen Use: No Assistive Devices: Glasses Review of Systems Review of Systems: All systems reviewed & are unremarkable except as noted in HPI & below Physical Exam Physical Exam: General: A&Ox3. NAD. Cooperative. HEENT: Atraumatic, normocephalic. Vision/hearing grossly intact. Mucous membranes tacky Pulm: CTAB A&P. -wheezes, -rales, -rhonchi. Symmetrical chest rise. No increased work of breathing. No respiratory distress. Cardiac: RRR, -mrg. Radial pulses intact and symmetrical. Abdominal: Soft, minimally tender to palpation without rebound/guarding Extremities: Warm, dry no edema Results & Data Results & Data Vital Signs (Past 12 Hours) Vital Signs Temp Pulse Pulse Resp BP BP Pulse Ox 03/19/23 15:52 74 17 98 03/19/23 15:52 74 17 139/79 98 03/19/23 13:53 36.7 C 69 15 147/82 H 100 O2 Del Method 03/19/23 15:52 Room Air 03/19/23 15:52 Room Air 03/19/23 13:53 Room Air PG Care Time/CCT Total # of Minutes Spent Total Time Spent with Patient: Total time spent is greater than 50% in coordination of care (as documented) at patient's floor/unit and/or counseling patient: Coding Level of Care Code 47363 INT INP/OBS CARE 3/75MIN Diagnoses SBO (small bowel obstruction) K56.609 Acute hyponatremia E87.1 Abdominal pain R10.30 Abdominal location: lower abdomen, unspecified History of colon cancer Z85.038 (3) Abdominal pain Abdominal location: lower abdomen, unspecified Qualified Code(s): R10.30 - Lower abdominal pain, unspecified
[2023-03-19] MEDS ORDERED: LIDOCAINE 2% JELLY 5 ML TUBE EXT ONE (16:27)
--- NOTE | 2023-03-19 17:16 | XRay Report ---
SINGLE VIEW CHEST CLINICAL HISTORY: Enteric tube placement. FINDINGS: An AP, portable, upright chest radiograph is compared to study dated 07/02/2007 and correla elias with chest CT dated 04/17/2021. An enteric tube is been placed. The tip projects below the diaphrag m over the mid stomach. The heart is enlarged. The pulmonary vasculature is noncongested. Chronic int erstitial thickening is similar to previous. There is mild bibasilar scarring/atelectasis. The lungs and pleural spaces are otherwise clear. No pneumothorax is seen. The skeletal structures are osteopen ic. Bony thorax is grossly intact. IMPRESSION: 1. Cardiomegaly with no active disease in the chest. 2. An enteric tube has been placed as above. ACT 112: Negative or not required by law. Electronically signed by: Yves Lama M.D. 03/19/2023 5:14 PM
[2023-03-19] MEDS ORDERED: ONDANSETRON INJ 2 MG/ML 2 ML VIAL IV PRN (17:20)
[2023-03-19] MEDS ORDERED: ACETAMINOPHEN 1,000 MG/100 ML VIAL IV PRN (17:20)
[2023-03-19] MEDS ORDERED: HYDROmorphone INJ 0.5 MG/0.5 ML SYR IV PRN (17:20)
[2023-03-19] MEDS ORDERED: HYDROmorphone INJ 1 MG/ML SYRINGE IV PRN (17:20)
[2023-03-19] MEDS ORDERED: VALPROATE SOD 250 MG in DEXTROSE 5% 50 ML IV ONE (21:00)
[2023-03-19] MEDS ORDERED: PLASMA-LYTE A 1,000 ML IV SCH (21:26)
[2023-03-19 23:03] LABS: BUN Creatinine Ratio 18.2 (10-20); Creatinine Clr Calc Pharmacy 59.1 ml/min; Est GFR (African American) 99.1 ml/min; Est GFR (Non-African American) 85.5 ml/min; Potassium 3.7 mmol/L (3.5-5.1)
--- NOTE | 2023-03-20 07:10 | Electrocardiogram Report ---
Test Reason : Blood Pressure : / mmHG Vent. Rate : 061 BPM Atrial Rate : 061 BPM P-R Int : 166 ms QRS Dur : 086 ms QT Int : 412 ms P-R-T Axes : 041 -09 022 degrees QTc Int : 414 ms Sinus rhythm with marked sinus arrhythmia Low voltage QRS Poor R wave progression, consider anterior HI vs. lead placement vs. LVH Abnormal ECG When compared with ECG of 17-APR-2021 22:21, No significant change was found Confirmed by Rodney Pardo ([id number]) on 03/20/2023 7:10:31 AM Referred By: REFERRED SELF Confirmed By:Tarun Pardo
[2023-03-20] MEDS: VALPROATE SOD 250 MG in DEXTROSE 5% 50 ML IV SCH ×2 (08:10→20:59)
[2023-03-20] MEDS: ENOXAPARIN INJ 30 MG/0.3 ML SYR SQ SCH ×2 (08:10→08:12)
--- NOTE | 2023-03-20 08:15 | Hospitalist Progress Note ---
Date of Service March 20, 2023 Assessment & Plan (1) SBO (small bowel obstruction): Plan: Small bowel obstruction history of bowel resection 2006 secondary to colon cancer, CTA/P: 1. Small bowel obstruction as above a transition point seen in the ventral upper pelvis. Surgery consulted NGT placed, LIS. 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 with NGT in place and clinically slightly hypovolemic cautious use of ivf to 80 cc/h, if sodium is dropping hold IVF. May need to add small boluses of 3% saline as patient is not able to take her salt tablets. Trigeminal neuralgia Carbamazepine is held while patient is n.p.o. with NGT in place - Follows with Neurologist Dr. Arias, - Discussed. Given holding carbamazepine with severe tgn pain previously will add valproate to 250 IV twice daily for rebound prevention. This will also give some seizure protection due to cessation of carbamazepine and hyponatremia Asymptomatic bacteriuria Diet: N.p.o. Disposition: Medical telemetry for initial acute hyponatremia monitoring, downgrade to medical/surgical if improved and stable CODE STATUS: Full code DVT prophylaxis: Lovenox (2) Acute hyponatremia: (3) Abdominal pain: (4) History of colon cancer: Admission and Anticipated Discharge Date Admission Date: March 19, 2023 Subjective Patient is pleasant first bowel obstruction although has previously had significant abdominal surgeries. Patient is tolerant of her NG tube complains of only being with a dry mouth Abdominal pain is fairly controlled reinforced the fact that we need to control her pain Physical Exam Physical Exam: Awake alert appropriate. Abdomen is with absent bowel sounds soft uncomfortable but no rebound guarding or distention Results & Data Results & Data Vital Signs (Past 12 Hours) Vital Signs Temp Pulse Pulse Resp BP Pulse Ox Pulse Ox 03/20/23 07:58 97.7 F 70 20 121/70 93 03/20/23 03:41 97.7 F 72 19 157/81 H 97 03/19/23 23:46 98.1 F 81 19 138/81 97 03/19/23 23:26 70 03/19/23 21:38 79 03/19/23 21:41 97.5 F L 83 18 154/80 H 94 03/19/23 21:26 97.5 F L 83 18 154/80 H 94 03/19/23 21:26 94 03/19/23 20:30 74 17 146/86 H 98 O2 Del Method O2 Del Method 03/20/23 07:58 Room Air 03/20/23 03:41 Room Air 03/19/23 23:46 Room Air 03/19/23 23:26 03/19/23 21:38 03/19/23 21:41 Room Air 03/19/23 21:26 Room Air 03/19/23 21:26 Room Air 03/19/23 20:30 Room Air Laboratory Results Ordered laboratories as was hyponatremic on presentation PG Care Time/CCT Total # of Minutes Spent Total Time Spent with Patient: Total time spent is greater than 50% in coordination of care (as documented) at patient's floor/unit and/or counseling patient: Coding Level of Care Code 44991 SUB INP/OBS CARE 2/35MIN Diagnoses SBO (small bowel obstruction) K56.609 Acute hyponatremia E87.1 Abdominal pain R10.30 Abdominal location: lower abdomen, unspecified History of colon cancer Z85.038 (3) Abdominal pain Abdominal location: lower abdomen, unspecified Qualified Code(s): R10.30 - Lower abdominal pain, unspecified
--- NOTE | 2023-03-20 08:58 | Surgery Consultation ---
Date of Consultation March 20, 2023 Assessment & Plan (1) SBO (small bowel obstruction): IVF NGT some improvement this AM hopefully will respond or will need exploration Present on Admission?: Yes History of Present Illness Attending Physician: Johnnie Puga MD History of Present Illness This is an 87-year-old female with a past medical history of colon cancer, partial colectomy, total hysterectomy with BSO, appendectomy who presents with a SBO. She began with worsening abdominal pain and progressed with nausea/vomiting. She denies fevers. Her last BM two days ago, no flatus No previous small bowel obstruction. Has not been eating and drinking well. No chest pain, chest pressure, shortness of breath Allergies Allergy/AdvReac Type Severity Reaction Status Date / Time mannitol [From Reclast] Allergy Mild "felt sick" Verified 03/19/23 16:10 risedronate sodium Allergy Mild "felt sick" Verified 03/19/23 16:10 [From Actonel] water for injection,sterile Allergy Mild "felt sick" Verified 03/19/23 16:10 [From Reclast] zoledronic acid Allergy Mild "felt sick" Verified 03/19/23 16:10 [From Reclast] Home Medications Medication Instructions Recorded Confirmed Type cholecalciferol (vitamin D3) 25 2,000 units PO DAILY #60 caps 05/16/19 03/19/23 History mcg (1,000 unit) capsule ascorbate calcium (vitamin C) 500 500 mg PO DAILY 03/27/21 03/19/23 History mg tablet zinc acetate 50 mg (zinc) capsule 50 mg PO DAILY 04/17/21 03/19/23 History cyclosporine 0.05 % eye drops in a 1 drp ophthalmic (eye) Q12H 10/14/21 03/19/23 History dropperette (Restasis) carbamazepine 200 mg 200 mg PO BID 30 days #60 caps 11/05/22 03/19/23 Rx capsule,extended release [id number] baclofen 10 mg tablet 10 mg PO BID 30 days #60 tabs 11/22/22 03/19/23 Rx sodium chloride 1,000 mg soluble 1,000 mg PO DAILY 03/19/23 03/19/23 History tablet Patient History Medical History Drug-induced leukopenia History of colon cancer 2007--sx Migraine Open wound of left upper arm Trigeminal neuralgia of left side of face Weight loss Surgical History History of appendectomy History of bilateral cataract extraction History of colonoscopy History of partial colectomy 2007 @ [facility] 12 inches removed History of tooth extraction partial permanent upper denture History of total hysterectomy with bilateral salpingo-oophorectomy (BSO) History of wisdom tooth extraction S/P cataract surgery Family History Father [place] workers pneumoconiosis Daughter Skin cancer Brother No problems noted. Aunt Family hx of colon cancer Other No family history of adverse response to anesthesia Denies family history of Ovarian cancer Prostate cancer Myocardial infarction Breast cancer Colorectal cancer Social History Smoking Status: Never smoker Second Hand Exposure: Yes (father smoked); Do You Dip or Chew Tobacco: No; Hx Alcohol Use: No Hx Substance Use: No Preferred Language: Nigerien Communication Ability: Effective Visual Impairment: No Limitations Hearing Ability: Normal Crankshaft Balancer Required: No Beliefs That Will Affect Care: None marital status: Current Living Situation: Spouse current occupational status: retired Other Information That Helps Us Care for You: No Feels Safe at Home: Yes Safety Concerns: Feels Safe At This Time Childhood Exposure to Second-Hand Smoke: Yes Dental Care, Regularly: Yes Physical Activity Frequency: Daily Physical Activity Frequency Comment: stairs at home Seatbelt Use: always Sunscreen Use: No Assistive Devices: None Review of Systems Constitutional: + chills and + anorexia; no fever Eyes: no problem reported Ear, Nose, Mouth, Throat: no problem reported Respiratory: no cough and no dyspnea Cardiovascular: no chest pain Gastrointestinal: + abdominal pain, + nausea, + vomiting and + change in bowel habits Genitourinary: no dysuria Musculoskeletal: no back pain Integumentary: no problem reported Neurologic: no localized weakness and no generalized weakness Psychiatric: no behavioral changes Endocrine: + fatigue Hematologic / Lymphatic: no easy bleeding and no easy bruising Physical Exam Constitutional: WD/WN, vitals as above Eyes: PERRL, conjunctivae normal, anicteric sclerae ENMT: external ear and nose normal, oropharynx normal Neck: trachea midline Respiratory: normal respiratory effort, lungs clear to auscultation Cardiovascular: RRR, no murmur, no edema Gastrointestinal (Abdomen): Inspection/Auscultation: abdomen normal to inspection, + abdomen distended, normal bowel sounds and + abdominal surgical scar Percussion/Palpation: + abdomen tender and abdomen soft; no guarding, abdomen not rigid and no hernia Musculoskeletal: Head/Neck/Chest: normocephalic and head atraumatic Skin: no rashes, warm and dry Results & Data Vital Signs (Past 12 Hours) Vital Signs Temp Pulse Pulse Resp BP Pulse Ox Pulse Ox 03/20/23 07:58 36.5 C 70 20 121/70 93 03/20/23 03:41 36.5 C 72 19 157/81 H 97 03/19/23 23:46 36.7 C 81 19 138/81 97 03/19/23 23:26 70 03/19/23 21:38 79 03/19/23 21:41 36.4 C L 83 18 154/80 H 94 03/19/23 21:26 36.4 C L 83 18 154/80 H 94 03/19/23 21:26 94 O2 Del Method O2 Del Method 03/20/23 07:58 Room Air 03/20/23 03:41 Room Air 03/19/23 23:46 Room Air 03/19/23 23:26 03/19/23 21:38 03/19/23 21:41 Room Air 03/19/23 21:26 Room Air 03/19/23 21:26 Room Air Diagnostic Findings CT SCAN OF THE ABDOMEN AND PELVIS WITH IV CONTRAST CLINICAL HISTORY: Generalized abdominal pain. COMPARISON STUDY: Abdominal CT dated 04/22/2021. TECHNIQUE: Following the IV administration of 92 cc of Optiray 320, CT scan of the abdomen and pelvis is performed from the lung bases to the proximal femora. Images are reviewed in the axial, sagittal, and coronal planes. IV contrast was administered without complication. A dose lowering technique was utilized adhering to the principles of ALARA. CT DOSE: 573.27 mGy.cm FINDINGS: Lung bases: The heart is enlarged and without pericardial effusion. There are coronary artery calcifications. The lung bases are clear noting dependent scarring/atelectasis. Liver: The contrast-enhanced liver is normal in size, contour, and attenuation. There is no intrahepatic biliary ductal dilatation. The hepatic veins and portal veins are patent. There is a 1.6 cm left lobe cyst. Gallbladder: Unremarkable. Spleen: Normal in size and attenuation. Pancreas: Unremarkable. Adrenal glands: Unremarkable. Kidneys: The contrast enhanced kidneys demonstrate mild cortical atrophy and are without hydronephrosis. There is fullness of the renal collecting systems, possibly related to bladder distention. The kidneys enhance symmetrically. Scattered subcentimeter cortical hypodensities likely represent cysts but are too small for definitive characterization. Abdominal vasculature: The abdominal aorta is normal in course and caliber noting mild atherosclerotic calcification. Bowel: There is postsurgical change from left-sided colon resection with colocolonic anastomosis. The small bowel loops are distended and fluid-filled, measuring up to 3.8 cm in diameter. A transition point is seen in the ventral upper pelvis on image #204, and the distal small bowel is decompressed. This is consistent with a small bowel obstruction. There is interloop fluid. No focally thick-walled bowel loops are identified. There is no pneumatosis intestinalis or portal venous gas. The appendix is not identified and reported surgically absent. Peritoneum: Nodular peritoneal free air is seen. There is trace perihepatic and a small volume of pelvic ascites. A midline surgical scar is noted. Lymphadenopathy: None. Pelvic viscera: The bladder is mildly distended but otherwise normal as visualized. The uterus is surgically absent. No adnexal lesion is seen. Skeletal structures: The skeletal structures are osteopenic. There is mild lumbosacral spondylosis. No lytic or blastic lesions are seen. IMPRESSION: 1. Small bowel obstruction as above a transition point seen in the ventral upper pelvis. This is likely on the basis of adhesions. 2. There is interloop fluid and a small volume of ascites. 3. No intraperitoneal free air is seen. No focally thick-walled bowel obstruction identified and there is no pneumatosis intestinalis or portal venous gas. 4. Cardiomegaly. 5. Additional findings as above.
[2023-03-20 17:38] LABS: BUN Creatinine Ratio 23.3 (10-20); Calcium 8.7 mg/dl (8.6-10.3); Creatinine Clr Calc Pharmacy 54.2 ml/min; Est GFR (African American) 96.3 ml/min; Est GFR (Non-African American) 83.1 ml/min; Potassium 3.7 mmol/L (3.5-5.1)
[2023-03-20] MEDS ORDERED: CHLORHEXIDINE GLUCONATE 0.12% 480 ML MT PRN (23:41)
[2023-03-21] MEDS: CHLORASEPTIC 1.4% SOLN 180 ML BTL MT PRN ×3 (01:12→22:03)
[2023-03-21 07:22] LABS: BUN Creatinine Ratio 28.1 (10-20); Calcium 8.7 mg/dl (8.6-10.3); Creatinine Clr Calc Pharmacy 57.1 ml/min; Est GFR (Non-African American) 84.5 ml/min; Potassium 3.8 mmol/L (3.5-5.1)
[2023-03-21] MEDS: VALPROATE SOD 250 MG in DEXTROSE 5% 50 ML IV SCH ×2 (08:11→20:30)
[2023-03-21] MEDS: ENOXAPARIN INJ 30 MG/0.3 ML SYR SQ SCH (09:20)
--- NOTE | 2023-03-21 09:40 | XRay Report ---
KUB CLINICAL HISTORY: Small bowel obstruction. FINDINGS: 2 AP, portable, supine abdominal radiographs are compared to study dated 05/05/2017 and osvaldo elated with abdominal CT dated 03/19/2023. An enteric tube projects below the diaphragm over the mid st omach. There is evidence of persistent small bowel obstruction. Distended gas-filled loops of small b owel measure up to 3.3 cm. Gas and stool are also seen within the colon. No evidence of intraperitone al free air is identified on these supine images. There are no abnormal abdominal calcifications. The skeletal structures are osteopenic and appear intact. There is mild lumbosacral spondylosis. IMPRESSION: 1. Persistent small bowel obstruction. 2. Gas and stool are noted in the colon. Electronically signed by: Yves Lama M.D. 03/21/2023 9:39 AM
[2023-03-21] MEDS ORDERED: COUGH DROP (SUGAR FREE) LOZ 24 LOZ/1 BOX BUCCAL ONE (10:15)
--- NOTE | 2023-03-21 12:41 | Surgery Progress Note ---
Date of Service March 21, 2023 Assessment & Plan (1) SBO (small bowel obstruction): Plan: avss pain much better no flatus yet Plan: Continue conservative management encouraged ambulation to increase GI motility, can clamp NGT to ambulate hallway continue medical management Dr. Garcia has seen and examined pt, agrees with above. Admission and Anticipated Discharge Date Admission Date: March 19, 2023 Subjective feeling better no flatus yet no n,v no abdominal pain Physical Exam Constitutional: WD/WN, vitals as above cooperative and comfortable; no acute distress and not ill appearing Neck: normal visual inspection and trachea midline Gastrointestinal (Abdomen): Inspection/Auscultation: abdomen normal to inspection; abdomen not distended Percussion/Palpation: abdomen soft; abdomen nontender, no guarding and abdomen not rigid NGT with clear output in tubing, dark bilious in cannister Skin: no rashes, warm and dry Psychiatric: Orientation: alert and oriented x 3 Results & Data Vital Signs (Past 12 Hours) Vital Signs Temp Pulse Pulse Resp BP BP Pulse Ox 03/21/23 11:29 36.4 C L 116 H 20 133/85 95 03/21/23 09:59 03/21/23 07:53 36.6 C 83 20 145/79 H 97 03/21/23 07:16 97 H 03/21/23 03:18 36.9 C 85 19 130/74 94 O2 Del Method 03/21/23 11:29 Room Air 03/21/23 09:59 Room Air 03/21/23 07:53 Room Air 03/21/23 07:16 03/21/23 03:18 Room Air Laboratory Results 03/21/23 03/20/23 Range/Units 05:40 16:59 Sodium 130 L 130 L (136-145) mmol/L Potassium 3.8 3.7 (3.5-5.1) mmol/L Chloride 93 L 93 L (98-107) mmol/L Carbon Dioxide 30 29 (21-32) mmol/L Anion Gap 7 8 (3-11) BUN 16 14 (6-23) mg/dl Creatinine 0.57 L 0.60 (0.6-1.2) mg/dl Est Cr Clr Drug Dosing 57.1 54.2 ml/min Est GFR ( Amer) 98.0 96.3 ml/min Est GFR (Non-Af Amer) 84.5 83.1 ml/min BUN/Creatinine Ratio 28.1 H 23.3 H (10-20) Glucose 91 97 (70-99(Fasting)) mg/dl Calcium 8.7 8.7 (8.6-10.3) mg/dl Diagnostic Findings KUB CLINICAL HISTORY: Small bowel obstruction. FINDINGS: 2 AP, portable, supine abdominal radiographs are compared to study dated 05/05/2017 and correlated with abdominal CT dated 03/19/2023. An enteric tube projects below the diaphragm over the mid stomach. There is evidence of persistent small bowel obstruction. Distended gas-filled loops of small bowel measure up to 3.3 cm. Gas and stool are also seen within the colon. No evidence of intraperitoneal free air is identified on these supine images. There are no abnormal abdominal calcifications. The skeletal structures are osteopenic and appear intact. There is mild lumbosacral spondylosis. IMPRESSION: 1. Persistent small bowel obstruction. 2. Gas and stool are noted in the colon.
[2023-03-21] MEDS: PLASMA-LYTE A 1,000 ML IV SCH ×2 (12:43→23:46)
[2023-03-21] MEDS ORDERED: METOPROLOL TARTRATE 1 MG/ML VIAL IV PRN (16:35)
--- NOTE | 2023-03-21 16:42 | Hospitalist Progress Note ---
Date of Service March 21, 2023 Assessment & Plan (1) SBO (small bowel obstruction): Plan: Small bowel obstruction history of bowel resection 2006 secondary to colon cancer, CTA/P: 1. Small bowel obstruction as above a transition point seen in the ventral upper pelvis. Surgery consulted continue conservative management NGT placed, continue LIS. 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 status Patient greater than 100,000 E. coli UTI present on admission we will institute Rocephin therapy patient having unexplained tachycardia at the present time we will consider this not asymptomatic bacteria but urinary tract infection Trigeminal neuralgia Carbamazepine is held while patient is n.p.o. with NGT in place - Follows with Neurologist Dr. Arias, - Discussed. Given holding carbamazepine with severe tgn pain previously will add valproate to 250 IV twice daily for rebound prevention. This will also give some seizure protection due to cessation of carbamazepine and hyponatremia Diet: N.p.o. Transition of medical CODE STATUS: Full code DVT prophylaxis: Lovenox (2) Acute hyponatremia: (3) Abdominal pain: (4) History of colon cancer: Admission and Anticipated Discharge Date Admission Date: March 19, 2023 Subjective Patient desperately wants her NG removed. KUB did not show any resolution of her small bowel obstruction. She has had no bowel movement or flatus. Sodium is improved we will start maintenance IV fluids appreciate general surgery following along Physical Exam Physical Exam: Awake alert appropriate. Abdomen is with absent bowel sounds soft uncomfortable but no rebound guarding or distention Results & Data Results & Data Vital Signs (Past 12 Hours) Vital Signs Temp Pulse Pulse Resp BP Pulse Ox O2 Del Method 03/21/23 15:33 97.9 F 118 H 20 151/83 H 98 Room Air 03/21/23 14:10 103 H 03/21/23 11:29 97.5 F L 116 H 20 133/85 95 Room Air 03/21/23 09:59 Room Air 03/21/23 07:53 97.9 F 83 20 145/79 H 97 Room Air 03/21/23 07:16 97 H Laboratory Results Reviewed KUB reviewed chemistry Reviewed urinalysis with E. coli pansensitive PG Care Time/CCT Total # of Minutes Spent Total Time Spent with Patient: Total time spent is greater than 50% in coordination of care (as documented) at patient's floor/unit and/or counseling patient: Coding Level of Care Code 22757 SUB INP/OBS CARE 3/50MIN Diagnoses SBO (small bowel obstruction) K56.609 Acute hyponatremia E87.1 Abdominal pain R10.30 Abdominal location: lower abdomen, unspecified History of colon cancer Z85.038 (3) Abdominal pain Abdominal location: lower abdomen, unspecified Qualified Code(s): R10.30 - Lower abdominal pain, unspecified
[2023-03-21] MEDS: cefTRIAXone SODIUM 2,000 MG in DEXTROSE 5% 50 ML IV SCH (17:22)
[2023-03-21] MEDS: COUGH DROP (SUGAR FREE) LOZ 24 LOZ/1 BOX BUCCAL PRN ×2 (18:03→22:35)
[2023-03-22] MEDS: COUGH DROP (SUGAR FREE) LOZ 24 LOZ/1 BOX BUCCAL PRN ×2 (02:01→20:31)
[2023-03-22 07:48] LABS: Creatinine Clr Calc Pharmacy 65.1 ml/min; Est GFR (African American) 102.3 ml/min; Est GFR (Non-African American) 88.3 ml/min; Potassium 3.4 mmol/L (3.5-5.1)
[2023-03-22] MEDS: ENOXAPARIN INJ 30 MG/0.3 ML SYR SQ SCH (08:10)
[2023-03-22] MEDS: VALPROATE SOD 250 MG in DEXTROSE 5% 50 ML IV SCH ×2 (08:10→20:31)
[2023-03-22] MEDS ORDERED: MAGNESIUM SULFATE / D5W 1 GM/100 ML BAG IV ONE (08:57)
[2023-03-22] MEDS ORDERED: POLYETHYLENE (MIRALAX) 17 GM PACK PO STA (09:10)
--- NOTE | 2023-03-22 11:09 | XRay Report ---
KUB CLINICAL HISTORY: Small bowel obstruction. FINDINGS: 2 AP, portable, supine abdominal radiographs are compared to study dated 03/21/2023 and corre lated with abdominal CT dated 03/19/2023. An enteric tube projects below the diaphragm over the mid sto mach. There is evidence of persistent small bowel obstruction. Distended gas-filled loops of small mary wel measure up to 3.2 cm. Gas and stool are also seen within the colon. Suture material projects over the left abdomen. No evidence of intraperitoneal free air is identified on these supine images. Ther e are no abnormal abdominal calcifications. The skeletal structures are osteopenic and appear intact. There is mild lumbosacral spondylosis. IMPRESSION: 1. Persistent small bowel obstruction. This appears modestly improved from yesterday. 2. Gas and stool are noted in the colon. Electronically signed by: Yves Lama M.D. 03/22/2023 11:07 AM
[2023-03-22] MEDS: POTASSIUM CHLORIDE / WTR 10 MEQ/100 ML PLCT IV SCH ×3 (11:14→13:46)
--- NOTE | 2023-03-22 12:25 | Surgery Progress Note ---
Date of Service March 22, 2023 Assessment & Plan (1) SBO (small bowel obstruction): Plan: avss pain much better + flatus and hard bowel movement this am Plan: Continue conservative management Clamp trial for NGT Miralax po Sips of water and ice chips okay encouraged ambulation to increase GI motility continue medical management Evaluated patient with Dr. Garcia around 3:00 pm NGT residual 80 cc, no pain or nausea with NGT being clamped still passing gas trying to drink Miralax encourage ambulation Discontinue NGT okay for sips and chips Dr. Garcia has seen patient and agrees with above. Admission and Anticipated Discharge Date Admission Date: March 19, 2023 Subjective having discomfort in throat due to NGT, gagging no nausea no abdominal pain passing gas and had large hard bowel movement this morning feels as though may need to pass more stool ambulated yesterday Physical Exam Constitutional: WD/WN, vitals as above cooperative; no acute distress and not ill appearing Respiratory: normal respiratory effort; no respiratory distress Gastrointestinal (Abdomen): Inspection/Auscultation: abdomen normal to inspection, + abdominal surgical scar (midline laparotomy scar) and + hypoactive bowel sounds; abdomen not distended and + abnormal bowel sounds Percussion/Palpation: abdomen soft; abdomen nontender, no guarding and abdomen not rigid NGT with clear bilious output in canister Skin: no rashes, warm and dry Psychiatric: Orientation: alert and oriented x 3 Results & Data Vital Signs (Past 12 Hours) Vital Signs Temp Pulse Resp BP Pulse Ox O2 Del Method 03/22/23 08:00 36.7 C 102 H 18 170/84 H 95 Room Air Laboratory Results 03/22/23 Range/Units 06:54 Sodium 130 L (136-145) mmol/L Potassium 3.4 L (3.5-5.1) mmol/L Chloride 93 L (98-107) mmol/L Carbon Dioxide 27 (21-32) mmol/L Anion Gap 10 (3-11) BUN 12 (6-23) mg/dl Creatinine 0.50 L (0.6-1.2) mg/dl Est Cr Clr Drug Dosing 65.1 ml/min Est GFR ( Amer) 102.3 ml/min Est GFR (Non-Af Amer) 88.3 ml/min BUN/Creatinine Ratio 24.0 H (10-20) Glucose 91 (70-99(Fasting)) mg/dl Calcium 9.0 (8.6-10.3) mg/dl
[2023-03-22] MEDS: PLASMA-LYTE A 1,000 ML IV SCH (12:27)
[2023-03-22] MEDS: cefTRIAXone SODIUM 2,000 MG in DEXTROSE 5% 50 ML IV SCH (17:06)
--- NOTE | 2023-03-22 17:11 | Hospitalist Progress Note ---
Date of Service March 22, 2023 Assessment & Plan (1) SBO (small bowel obstruction): Plan: Small bowel obstruction history of bowel resection 2006 secondary to colon cancer, CTA/P: 1. Small bowel obstruction as above a transition point seen in the ventral upper pelvis. 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 status Patient greater than 100,000 E. coli UTI present on admission we will institute Rocephin therapy patient having unexplained tachycardia at the present time we will consider this not asymptomatic bacteria but urinary tract infection Trigeminal neuralgia Carbamazepine is held while patient is n.p.o. with NGT in place - Follows with Neurologist Dr. Arias, - Discussed. Given holding carbamazepine with severe tgn pain previously will add valproate to 250 IV twice daily for rebound prevention. This will also give some seizure protection due to cessation of carbamazepine and hyponatremia For sleep aid we will try 1 dose of Seroquel CODE STATUS: Full code DVT prophylaxis: Lovenox (2) Acute hyponatremia: (3) Abdominal pain: (4) History of colon cancer: Admission and Anticipated Discharge Date Admission Date: March 19, 2023 Subjective Pt is with continued sore throat, NGT is clamped, sleep deprived, Physical Exam Physical Exam: Awake alert appropriate. Abdomen is with absent bowel sounds soft uncomfortable but no rebound guarding or distention Results & Data Results & Data Vital Signs (Past 12 Hours) Vital Signs Temp Pulse Resp BP Pulse Ox O2 Del Method 03/22/23 14:41 98.1 F 107 H 19 153/96 H 95 Room Air 03/22/23 08:00 98.1 F 102 H 18 170/84 H 95 Room Air PG Care Time/CCT Total # of Minutes Spent Total Time Spent with Patient: Total time spent is greater than 50% in coordination of care (as documented) at patient's floor/unit and/or counseling patient: Coding Level of Care Code 73922 SUB INP/OBS CARE 2/35MIN Diagnoses SBO (small bowel obstruction) K56.609 Acute hyponatremia E87.1 Abdominal pain R10.30 Abdominal location: lower abdomen, unspecified History of colon cancer Z85.038 (3) Abdominal pain Abdominal location: lower abdomen, unspecified Qualified Code(s): R10.30 - Lower abdominal pain, unspecified
[2023-03-22] MEDS ORDERED: QUEtiapine FUMARATE 25 MG TABLET PO ONE (21:00)
[2023-03-23] MEDS: PLASMA-LYTE A 1,000 ML IV SCH ×2 (02:22→19:19)
[2023-03-23] MEDS: VALPROATE SOD 250 MG in DEXTROSE 5% 50 ML IV SCH ×2 (08:04→20:41)
[2023-03-23] MEDS: ENOXAPARIN INJ 40 MG/0.4 ML SYR SQ SCH (08:05)
[2023-03-23 09:09] LABS: BUN Creatinine Ratio 27.1 (10-20); Calcium 8.6 mg/dl (8.6-10.3); Creatinine Clr Calc Pharmacy 67.8 ml/min; Est GFR (African American) 103.7 ml/min; Est GFR (Non-African American) 89.4 ml/min; Potassium 3.6 mmol/L (3.5-5.1)
--- NOTE | 2023-03-23 13:41 | Surgery Progress Note ---
Date of Service March 23, 2023 Assessment & Plan (1) SBO (small bowel obstruction): Plan: resolving avss pain much better + flatus Plan: Continue conservative management clear liquids encouraged ambulation may require further doses of Miralax and stool softeners Discussed with Dr. Garcia who agrees with above. Admission and Anticipated Discharge Date Admission Date: March 19, 2023 Physical Exam Constitutional: WD/WN, vitals as above cooperative and comfortable; no acute distress and not ill appearing Gastrointestinal (Abdomen): Inspection/Auscultation: abdomen normal to inspection and + abdominal surgical scar (midline laparotomy scar); abdomen not distended Percussion/Palpation: abdomen soft; abdomen nontender, no guarding and abdomen not rigid Psychiatric: A+Ox3, euthymic affect Results & Data Vital Signs (Past 12 Hours) Vital Signs Temp Pulse Resp BP Pulse Ox O2 Del Method 03/23/23 06:32 36.4 C L 77 16 118/68 98 Room Air Laboratory Results 03/23/23 Range/Units 07:51 Sodium 130 L (136-145) mmol/L Potassium 3.6 (3.5-5.1) mmol/L Chloride 94 L (98-107) mmol/L Carbon Dioxide 26 (21-32) mmol/L Anion Gap 10 (3-11) BUN 13 (6-23) mg/dl Creatinine 0.48 L (0.6-1.2) mg/dl Est Cr Clr Drug Dosing 67.8 ml/min Est GFR ( Amer) 103.7 ml/min Est GFR (Non-Af Amer) 89.4 ml/min BUN/Creatinine Ratio 27.1 H (10-20) Glucose 75 (70-99(Fasting)) mg/dl Calcium 8.6 (8.6-10.3) mg/dl
--- NOTE | 2023-03-23 15:19 | Hospitalist Progress Note ---
Date of Service March 23, 2023 Assessment & Plan (1) SBO (small bowel obstruction): Plan: Small bowel obstruction history of bowel resection 2006 secondary to colon cancer, CTA/P: 1. Small bowel obstruction as above a transition point seen in the ventral upper pelvis. 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 status Patient greater than 100,000 E. coli UTI present on admission we will institute Rocephin therapy patient having unexplained tachycardia at the present time we will consider this not asymptomatic bacteria but urinary tract infection Trigeminal neuralgia Carbamazepine restarted for trigeminal neuralgia - Follows with Neurologist Dr. Arias, - For sleep aid we will try 1 dose of Seroquel did have some improvement will reduce dose for the night of 03/23 CODE STATUS: Full code DVT prophylaxis: Lovenox (2) Acute hyponatremia: Plan: acute on chronic hyponatremia this was improved her sodium is running around 130 at this point in time no neurological complaint (3) Abdominal pain: (4) History of colon cancer: Admission and Anticipated Discharge Date Admission Date: March 19, 2023 possible discharge March 24, 2023 Subjective pt is doing well, advancing diet, ngt pulled. small hard bowel movement s Physical Exam Physical Exam: patient awake and alert she is no abdominal pain nontender lungs are clear to bases Results & Data Results & Data Vital Signs (Past 12 Hours) Vital Signs Temp Pulse Resp BP Pulse Ox O2 Del Method 03/23/23 06:32 97.5 F L 77 16 118/68 98 Room Air PG Care Time/CCT Total # of Minutes Spent Total Time Spent with Patient: Total time spent is greater than 50% in coordination of care (as documented) at patient's floor/unit and/or counseling patient: Coding Level of Care Code 02839 SUB INP/OBS CARE 2/35MIN Diagnoses SBO (small bowel obstruction) K56.609 Acute hyponatremia E87.1 Abdominal pain R10.30 Abdominal location: lower abdomen, unspecified History of colon cancer Z85.038 (3) Abdominal pain Abdominal location: lower abdomen, unspecified Qualified Code(s): R10.30 - Lower abdominal pain, unspecified
[2023-03-23] MEDS ORDERED: POLYETHYLENE (MIRALAX) 17 GM PACK PO ONE (15:25)
[2023-03-23] MEDS: POLYETHYLENE (MIRALAX) 17 GM PACK PO SCH (17:19)
[2023-03-23] MEDS: cefTRIAXone SODIUM 2,000 MG in DEXTROSE 5% 50 ML IV SCH (17:24)
[2023-03-23] MEDS: DOCUSATE SODIUM 100 MG CAP PO SCH (20:41)
[2023-03-23] MEDS ORDERED: QUEtiapine FUMARATE 25 MG TABLET PO ONE ×2 (21:00)
[2023-03-24 07:37] LABS: BUN Creatinine Ratio 22.6 (10-20); Calcium 8.3 mg/dl (8.6-10.3); Creatinine Clr Calc Pharmacy 61.4 ml/min; Est GFR (African American) 100.3 ml/min; Est GFR (Non-African American) 86.6 ml/min; Potassium 3.4 mmol/L (3.5-5.1)
[2023-03-24] MEDS: DOCUSATE SODIUM 100 MG CAP PO SCH ×2 (08:40→08:53)
[2023-03-24] MEDS: ENOXAPARIN INJ 40 MG/0.4 ML SYR SQ SCH (08:41)
[2023-03-24] MEDS: VALPROATE SOD 250 MG in DEXTROSE 5% 50 ML IV SCH (08:42)
--- NOTE | 2023-03-24 09:34 | Surgery Progress Note ---
Date of Service March 24, 2023 Assessment & Plan (1) SBO (small bowel obstruction): Plan: resolving avss no abdominal pain + return of bowel function Plan: advance to low fiber diet recommend low fiber diet at home for 1 week discharge per medicine service our services signing off Discussed with Dr. Garcia who agrees with above. Admission and Anticipated Discharge Date Admission Date: March 19, 2023 Subjective feeling great this morning having multiple bowel movements, loose last night, some formed stool and loose stool this morning tolerating liquids no n,v passing gas no abdominal pain Physical Exam Constitutional: WD/WN, vitals as above cooperative and comfortable; no acute distress and not ill appearing Gastrointestinal (Abdomen): Inspection/Auscultation: abdomen normal to inspect ion and + abdominal surgical scar (midline laparotomy scar); abdomen not distended Percussion/Palpation: abdomen soft; abdomen nontender, no guarding and abdomen not rigid Psychiatric: A+Ox3, euthymic affect Results & Data Vital Signs (Past 12 Hours) Vital Signs Temp Pulse Resp BP Pulse Ox O2 Del Method 03/24/23 07:31 36.9 C 100 H 16 123/79 99 Room Air
[2023-03-24] MEDS: POLYETHYLENE (MIRALAX) 17 GM PACK PO SCH (09:40)
[2023-03-24] MEDS: cefTRIAXone SODIUM 2,000 MG in DEXTROSE 5% 50 ML IV SCH (17:02)
--- NOTE | 2023-03-24 17:42 | Discharge Summary ---
Date of Service March 24, 2023 Admission HPI Per Admitting Provider Lorenza is a 87-year-old female with a past medical history of colon cancer, partial colectomy, total hysterectomy with BSO, appendectomy, hyponatremia, osteoporosis, trigeminal neuralgia who presented with worsening abdominal pain and was found to have small bowel obstruction Seen at the bedside with her . 1 day of nausea/vomiting. NO fever. +chills for 2-3 days. Last BM very little stool today, partial sfot BM yesterday. Minimal to no flatus Has never had a small bowel obstruction before. Has had multiple abdominal surgeries including cyst removal, colectomy for cancer, hysterectomy, and appendectomy She is no longer passing gas in the last 12 hours, reports she has been belching more. She has not had nausea/vomiting Abdomen feels a little bit upset/sore Denies urinary symptoms including dysuria, polyuria Has not been eating and drinking as well Notes that she has severe trigeminal neuralgia currently in remission. This is done well on carbamazepine and she has had chronically low sodium, but these have been intolerable levels and risk/benefit discussion have continued this with careful monitoring. She notes that her neurologist is okay with this, although her PCP has been more concerned. Generally sodium levels above 130 No chest pain, chest pressure, shortness of breath Medical History: Reviewed Medications: Reviewed Surgical History: Reviewed Family history: Reviewed Allergies: Reviewed Social History: No tobacco/alcohol Code Status: Full code Principal Diagnosis SBO Discharge Exam patient awake and alert she is no abdominal pain nontender lungs are clear to bases Discharge Data Allergies Allergy/AdvReac Type Severity Reaction Status Date / Time mannitol [From Reclast] Allergy Mild "felt sick" Verified 03/19/23 16:10 risedronate sodium Allergy Mild "felt sick" Verified 03/19/23 16:10 [From Actonel] water for injection,sterile Allergy Mild "felt sick" Verified 03/19/23 16:10 [From Reclast] zoledronic acid Allergy Mild "felt sick" Verified 03/19/23 16:10 [From Reclast] Consultations 03/19/23 16:06 ED Decision to Admit Stat 03/19/23 17:21 Consult General Surgery Routine Ordered Studies 03/19/23 14:05 CT abd pelvis IV con only Stat Hospital Course (1) SBO (small bowel obstruction): Small bowel obstruction history of bowel resection 2006 secondary to colon cancer, CTA/P: 1. Small bowel obstruction as above a transition point seen in the ventral upper pelvis. -Surgery was consulted. NG tube place on intermittent suction. NG tube removed. Return of bowel function. Tolerated low fiber diet. Acute on chronic hyponatremia Previously thought to be due to carbamazepine use, patient remains on this Baseline sodium ranges 849586 Admitting sodium 124 has risen to 130 -carbamazepine temporarily held, this was resumed at discharge. will recommend monitoring sodium as an outpatient to determine if carbamazepine should be discontinued indefinitely. Patient greater than 100,000 E. coli UTI present on admission we will institute Rocephin therapy patient having unexplained tachycardia at the present time we will consider this not asymptomatic bacteria but urinary tract infection: received 4 days of IV antibiotics Trigeminal neuralgia Carbamazepine restarted for trigeminal neuralgia - Follows with Neurologist Dr. Arias, - (2) Acute hyponatremia: acute on chronic hyponatremia this was improved her sodium is running around 130 at this point in time no neurological complaint (3) Abdominal pain: (4) History of colon cancer: Total Time Total Time Spent Total Time Spent (In Minutes): 32 Discharge Plan Discharge Items Patient Disposition: Home - Self-Care Reason For Visit: SBO, HYPONATREMIA Discharge Diagnosis: SBO Activity: Resume your previous activity Non-emergency contact: Primary Care Provider Call non-emergency contact if: you have any medication questions Follow-up/Referrals: Hortencia Ang MD [Primary Care Provider] - Diet: Low Fiber Addtl Attending Provider Instructions: recommend followup with PCP in 1 week. A low fiber diet is typically recommended for individuals with certain medical conditions or as a temporary measure to relieve digestive symptoms. Here is some basic information about a low fiber diet: 1. Purpose: A low fiber diet limits the intake of foods high in dietary fiber to reduce the workload on the digestive system and ease symptoms like diarrhea, abdominal pain, or cramping. 2. Foods to limit or avoid: - Whole grains (e.g., whole wheat, whole oats, brown rice) - Legumes (e.g., lentils, beans, chickpeas) - Nuts and seeds - Raw fruits and vegetables (except for some cooked or peeled options) - High-fiber cereals or breads 3. Foods generally allowed: - Refined grains (e.g., white bread, white rice, refined cereals) - Cooked and peeled fruits and vegetables (e.g., applesauce, canned fruits, cooked carrots) - Lean meats, poultry, and fish - Dairy products (unless lactose intolerant) - Eggs 4. Cooking and preparation methods: - Choose peeled or cooked fruits and vegetables instead of raw ones. - Remove seeds and skin from fruits and vegetables. - Opt for refined grain products instead of whole grains. - Cook or soak legumes to reduce their fiber content. It's important to note that a low fiber diet should only be followed under the guidance of a healthcare professional, as it is not suitable for long-term use. They can provide personalized recommendations based on your specific needs and condition. Addtl Spray Blender Provider Instructions: Recommend low fiber diet for about 1 week and then resume to regular diet. Drink plenty of water Continue your normal bowel regimen to avoid constipation Pending Studies at Discharge: No Stand-Alone Forms: My [facility], Smoking Cessation Medications and DC Order Prescriptions: New docusate sodium 100 mg Capsule 100 mg PO BID Qty: 30 0RF Continued carbamazepine 200 mg capsule, ER multiphase 12 hr 200 mg PO BID 30 Days Qty: 60 5RF baclofen 10 mg tablet 10 mg PO BID 30 Days Qty: 60 5RF cholecalciferol (vitamin D3) 1,000 unit capsule 2,000 units PO DAILY Qty: 60 ascorbate calcium (vitamin C) 500 mg tablet 500 mg PO DAILY Restasis 0.05 % dropperette 1 drp ophthalmic (eye) Q12H zinc acetate 50 mg (zinc) Capsule 50 mg PO DAILY sodium chloride 1,000 mg Tablet,Soluble 1,000 mg PO DAILY Discharge Orders: Discharge Order (Routine); Ordered 03/24/23 Ordered By: Rico Thomas/Other Patient Handouts: Low-Fiber Diet Admission Data Admit Date/Time: 03/19/23 16:59 Attending Provider: Rico Braun Admit Provider: Bryce Vázquez Primary Care Provider: Hortencia Ang V. Other Providers: Bryce Vázquez ; Willam Jha Other Interventions: Discharge Summary Assessment (RN) Last Done: 03/24/23 18:00 Coding Level of Care Code 92222 INP/OBS DISCH >30 MIN Diagnoses SBO (small bowel obstruction) K56.609 Acute hyponatremia E87.1 Abdominal pain R10.30 Abdominal location: lower abdomen, unspecified History of colon cancer Z85.038
== END 2023-03-24 18:26 | disposition home or self-care (01) | DRG 389 ==
LOC: ED 13:50 → SUATTDRO 16:59 → 2S 16:59 → 3N 03-21 21:53
DX: E22.2 Syndrome of inappropriate secretion of antidiuretic hormone; Z85.038 Personal history of other malignant neoplasm of large intestine; N39.0 Urinary tract infection, site not specified; K56.50 Intestinal adhesions [bands], unspecified as to partial versus complete obstruction; T42.1X5A Adverse effect of iminostilbenes, initial encounter; G50.0 Trigeminal neuralgia; R18.8 Other ascites; Y92.009 Unspecified place in unspecified non-institutional (private) residence as the place of occurrence of the external cause; B96.20 Unspecified Escherichia coli [E. coli] as the cause of diseases classified elsewhere